=== PATIENT | female | born 1990 | race Caucasian/White ===

== ENCOUNTER → 2018-12-15 | Outpatient (CLI) | payer MEDICAID ==
[2015-09-23 22:00] VITALS: BP 110/63
[~2018-12-15] MED LIST: CYMBALTA60 M1 PO; IBUPROFEN800 MG PO; INDERAL 10MG10 MG PO; NO HOME MEDICATIONS; NORCO 325 MG-51 TAB PO; RT ALBUTEROL I6.8 GM IH
== END ==
LOC: RAD 12-10 08:30
DX: M54.9 Dorsalgia, unspecified (principal); M79.10 Myalgia, unspecified site

== ENCOUNTER → 2019-05-26 | Outpatient (CLI) | payer BC, MEDICAID ==
[2015-09-23 22:00] VITALS: BP 110/63
== END ==
LOC: RAD 13:22
DX: M25.511 Pain in right shoulder (principal)

== ENCOUNTER → 2019-06-17 | Outpatient (CLI) | payer BC, MEDICAID ==
[2015-09-23 22:00] VITALS: BP 110/63
[2019-06-19 14:46] LABS: ANA SCREEN with REFLEX Negative (Negative)
== END ==
LOC: LAB 16:45
PROVIDERS: Nurse Practitioner
DX: L40.9 Psoriasis, unspecified (principal); M25.50 Pain in unspecified joint

== ENCOUNTER 2019-07-22 22:38 | Emergency (ER) | payer BC, MEDICAID ==
[2019-07-22] MEDS ORDERED: PREGABALIN75 MG PO (22:45)
[2019-07-22 23:48] VITALS: BP 124/75
== END 2019-07-22 23:48 | disposition home or self-care (01) ==
LOC: ED 22:38
DX: S61.511A Laceration without foreign body of right wrist, initial encounter (principal); M79.7 Fibromyalgia; F17.290 Nicotine dependence, other tobacco product, uncomplicated; Z23 Encounter for immunization; W01.110A Fall on same level from slipping, tripping and stumbling with subsequent striking against sharp glass, initial encounter; Y92.009 Unspecified place in unspecified non-institutional (private) residence as the place of occurrence of the external cause
CPT/HCPCS: 90715

== ENCOUNTER 2019-08-23 14:59 | Emergency (ER) | payer BC, MEDICAID ==
[~2019-08-23] VITALS: Ht 170.2 cm; Wt 84.1 kg
[~2019-08-23 14:59] MED LIST changes: +PREGABALIN75 MG PO
[2019-08-23] MEDS ORDERED: ZOFRAN4 M2 PO (16:12)
[2019-08-23] MEDS ORDERED: OXAYDO7.5 MG PO (16:12)
[2019-08-23 16:41] LABS: HEMATOCRIT 38.7 % (37.0-47.0); HEMOGLOBIN 12.8 g/dL (12.5-16.0); MEAN CELL VOLUME 89 fl (78-100); MEAN CORPUSCULAR HEMOGLOBIN 29 pg (27-31); MEAN CORPUSCULAR HGB CONC 33 g/dL (33-37); MEAN PLATELET VOLUME 9.1 fl (7.4-10.4); PLATELET COUNT 223 K/mm3 (130-400); RED BLOOD COUNT 4.35 M/mm3 (4.10-5.30); RED CELL DISTRIBUTION WIDTH 12.7 % (11.5-14.5); WHITE BLOOD COUNT 5.3 K/mm3 (4.8-10.8)
[2019-08-23 16:46] LABS: ALBUMIN 4.1 g/dL (3.5-5.0); POTASSIUM 4.3 mmol/L (3.5-5.1)
[2019-08-23 16:47] LABS: CALCIUM 9.5 mg/dL (8.3-10.5)
[2019-08-23 16:48] LABS: TOTAL PROTEIN 7.1 g/dL (6.4-8.3)
[2019-08-23 16:50] LABS: TOTAL BILIRUBIN 0.7 mg/dL (0.2-1.2)
[2019-08-23 16:58] LABS: LYMPHOCYTE 35 % (20-51); MONOCYTE 9 % (3-10); NEUTROPHILS 54 % (42-75)
[2019-08-23 17:26] VITALS: BP 121/78
== END 2019-08-23 17:28 | disposition home or self-care (01) ==
LOC: ED 14:59
PROVIDERS: Family Medicine
DX: A08.4 Viral intestinal infection, unspecified (principal); M79.7 Fibromyalgia; G43.909 Migraine, unspecified, not intractable, without status migrainosus; F17.210 Nicotine dependence, cigarettes, uncomplicated; Z90.49 Acquired absence of other specified parts of digestive tract

== ENCOUNTER 2019-10-09 15:00 | Outpatient (RCR) | payer BC, MEDICAID ==
[~2019-10-09 15:00] MED LIST changes: +OXAYDO7.5 MG PO; +ZOFRAN4 M2 PO
== END 2019-10-09 15:30 | disposition still patient (30) ==
LOC: PT 15:00
DX: M75.41 Impingement syndrome of right shoulder (principal); G25.89 Other specified extrapyramidal and movement disorders

== ENCOUNTER 2019-10-09 15:30 | Outpatient (RCR) | payer BC, MEDICAID ==
[2015-09-23 22:00] VITALS: BP 110/63
== END 2019-10-11 | disposition still patient (30) ==
LOC: PT
DX: M25.511 Pain in right shoulder (principal)

== ENCOUNTER 2019-12-14 15:00 | Outpatient (RCR) | payer BC, MEDICAID | END 2020-01-24 | disposition still patient (30) | LOC: PT | DX: M25.511 Pain in right shoulder (principal); M25.50 Pain in unspecified joint ==

== ENCOUNTER 2020-02-25 16:00 | Outpatient (RCR) | payer BC, MEDICAID | END 2020-02-25 16:30 | disposition home or self-care (01) | LOC: PT 16:00 | DX: M54.2 Cervicalgia (principal); M79.7 Fibromyalgia ==

== ENCOUNTER → 2020-03-22 | Outpatient (CLI) | payer BC, MEDICAID | LOC: LAB 18:51 | DX: G43.909 Migraine, unspecified, not intractable, without status migrainosus (principal); R31.9 Hematuria, unspecified ==

== ENCOUNTER → 2020-10-10 | Outpatient (CLI) | payer MEDICAID ==
[~2020-10-10] MED LIST changes: +BIRTH CONTROL PO; +CIPRO500 M1 PO; +FLAGYL500 M1 PO; +GRALISE600 MG PO; +NORCO 325 MG-51 TA1 PO; +OXAYDO5 MG PO; -OXAYDO7.5 MG PO; +PROAIR HFA0.09 MG/AC IH; -RT ALBUTEROL I6.8 GM IH; +SAVELLA50 MG PO; +ZOFRAN ODT4 MG PO
== END ==
LOC: LAB 13:21
DX: U07.1 COVID-19 (principal)

== ENCOUNTER 2021-03-03 08:51 | Emergency (ER) | payer MEDICAID ==
[~2021-03-03 08:51] MED LIST changes: -BIRTH CONTROL PO; -CIPRO500 M1 PO; -FLAGYL500 M1 PO; -GRALISE600 MG PO; -NORCO 325 MG-51 TA1 PO; -SAVELLA50 MG PO; -ZOFRAN ODT4 MG PO
[2021-03-03] MEDS ORDERED: GRALISE600 MG PO (09:06)
[2021-03-03] MEDS ORDERED: BIRTH CONTROL PO (09:07)
[2021-03-03] MEDS ORDERED: SAVELLA50 MG PO (09:07)
[2021-03-03 10:01] LABS: HEMATOCRIT 42.7 % (37.0-47.0); MEAN CELL VOLUME 95 fl (78-100); MEAN CORPUSCULAR HEMOGLOBIN 31 pg (27-31); MEAN CORPUSCULAR HGB CONC 33 g/dL (33-37); MEAN PLATELET VOLUME 10.2 fl (7.4-10.4); PLATELET COUNT 164 K/mm3 (130-400); RED BLOOD COUNT 4.51 M/mm3 (4.10-5.30); WHITE BLOOD COUNT 10.3 K/mm3 (4.8-10.8)
[2021-03-03 10:05] LABS: ALBUMIN 4.1 g/dL (3.5-5.0)
[2021-03-03 10:06] LABS: POTASSIUM 3.9 mmol/L (3.5-5.1)
[2021-03-03 10:08] LABS: TOTAL PROTEIN 6.9 g/dL (6.4-8.3)
[2021-03-03 10:10] LABS: TOTAL BILIRUBIN 1.3 mg/dL (0.2-1.2)
[2021-03-03 10:43] LABS: LYMPHOCYTE 12 % (20-51); MONOCYTE 4 % (3-10); NEUTROPHILS 82 % (42-75)
[2021-03-03 11:05] LABS: PH-URINE 6.5 (5.0 - 8.0); URINE APPEARANCE HAZY; URINE BILIRUBIN NEGATIVE (NEGATIVE); URINE BLOOD TRACE (NEGATIVE); URINE COLOR DK YELLOW; URINE GLUCOSE NEGATIVE (NEGATIVE); URINE KETONE NEGATIVE (NEGATIVE); URINE LEUKOCYTE ESTERASE TRACE (NEGATIVE); URINE NITRATE NEGATIVE (NEGATIVE); URINE PROTEIN(semi-quant) NEGATIVE (NEGATIVE); URINE UROBILINOGEN NORMAL (NORMAL)
[2021-03-03 11:06] LABS: URINE MUCUS PRESENT (NOT PRESENT)
[2021-03-03] MEDS ORDERED: NORCO 325 MG-51 TA1 PO (12:47)
[2021-03-03] MEDS ORDERED: CIPRO500 M1 PO (12:47)
[2021-03-03] MEDS ORDERED: ZOFRAN ODT4 MG PO (12:47)
[2021-03-03] MEDS ORDERED: FLAGYL500 M1 PO (12:47)
[2021-03-03 13:17] VITALS: BP 137/87
== END 2021-03-03 13:19 | disposition home or self-care (01) ==
LOC: ED 08:51
PROVIDERS: Physician Assistant
DX: K52.9 Noninfective gastroenteritis and colitis, unspecified (principal); F17.210 Nicotine dependence, cigarettes, uncomplicated
CPT/HCPCS: J1885; J2405; J7030; Q9967

== ENCOUNTER → 2021-05-08 | Outpatient (CLI) | payer MEDICAID ==
[~2021-05-08] MED LIST changes: +BIRTH CONTROL PO; +CIPRO500 M1 PO; +FLAGYL500 M1 PO; +GRALISE600 MG PO; +NORCO 325 MG-51 TA1 PO; +SAVELLA50 MG PO; +ZOFRAN ODT4 MG PO
[2021-05-08 16:37] LABS: BASO # 0.01 (0.02-0.10); EOS # 0.03 (0.04-0.40); EOS % 0.4 % (1.0-5.0); HEMATOCRIT 44.1 % (37.0-47.0); HEMOGLOBIN 14.8 g/dL (12.5-16.0); LYMPH# 1.45 (1.50-4.00); MEAN CELL VOLUME 92 fl (78-100); MEAN CORPUSCULAR HEMOGLOBIN 31 pg (27-31); MEAN CORPUSCULAR HGB CONC 34 g/dL (33-37); MEAN PLATELET VOLUME 8.9 fl (7.4-10.4); MONO # 0.54 (0.20-0.80); NEU # 6.43 (1.40-6.50); PLATELET COUNT 350 K/mm3 (130-400); RED BLOOD COUNT 4.81 M/mm3 (4.10-5.30); RED CELL DISTRIBUTION WIDTH 12.5 % (11.5-14.5); WHITE BLOOD COUNT 8.5 K/mm3 (4.8-10.8)
[2021-05-08 16:41] LABS: ALBUMIN 4.4 g/dL (3.5-5.0); POTASSIUM 4.8 mmol/L (3.5-5.1); SODIUM 141 mmol/L (136-145)
[2021-05-08 16:42] LABS: CALCIUM 9.8 mg/dL (8.3-10.5)
[2021-05-08 16:43] LABS: GLUCOSE 100 mg/dL (65-105)
[2021-05-08 16:44] LABS: TOTAL PROTEIN 7.6 g/dL (6.4-8.3)
[2021-05-08 16:45] LABS: CARBON DIOXIDE 22 mmol/L (22-29); TOTAL BILIRUBIN 0.7 mg/dL (0.2-1.2)
[2021-05-08 16:49] LABS: AST-SGOT 16 U/L (5-34)
[2021-05-08 16:50] LABS: ALT/SGPT 17 U/L (0-55); MAGNESIUM 2.09 mg/dL (1.60-2.60)
[2021-05-08 16:51] LABS: LIPASE 46 U/L (8-78)
[2021-05-08 17:51] LABS: ERYTHROCYTE SEDIMENTATION RATE 0 mm/hr (0-20)
== END ==
LOC: LAB 16:04
PROVIDERS: Internal Medicine
DX: R19.7 Diarrhea, unspecified (principal)

== ENCOUNTER → 2022-03-26 | Outpatient (CLI) | payer MEDICAID | LOC: RAD 17:53 | DX: M47.812 Spondylosis without myelopathy or radiculopathy, cervical region (principal); M48.03 Spinal stenosis, cervicothoracic region; M50.21 Other cervical disc displacement, high cervical region; M40.50 Lordosis, unspecified, site unspecified ==

== ENCOUNTER 2022-11-12 17:03 | Emergency (ER) | payer OTHER ==
[~2022-11-12] VITALS: Ht 170.2 cm; Wt 86.4 kg
[2022-11-12 17:51] LABS: BASO # 0.01 K/mm3 (0.02-0.10); EOS # 0.02 K/mm3 (0.04-0.40); EOS % 0.2 % (1.0-5.0); HEMATOCRIT 39.6 % (37.0-47.0); HEMOGLOBIN 13.3 g/dL (12.5-16.0); LYMPH# 1.54 K/mm3 (1.50-4.00); MEAN CELL VOLUME 90 fl (78-100); MEAN CORPUSCULAR HEMOGLOBIN 30 pg (27-31); MEAN CORPUSCULAR HGB CONC 34 g/dL (33-37); MONO # 0.54 K/mm3 (0.20-0.80); NEU # 6.72 K/mm3 (1.40-6.50); PLATELET COUNT 290 K/mm3 (130-400); RED BLOOD COUNT 4.41 M/mm3 (4.10-5.30); WHITE BLOOD COUNT 8.8 K/mm3 (4.8-10.8)
[2022-11-12 18:00] LABS: ALBUMIN 4.3 g/dL (3.5-5.0)
[2022-11-12 18:01] LABS: POTASSIUM 4.3 mmol/L (3.5-5.1)
[2022-11-12 18:02] LABS: CALCIUM 9.2 mg/dL (8.3-10.5)
[2022-11-12 18:03] LABS: TOTAL PROTEIN 6.9 g/dL (6.4-8.3)
[2022-11-12 18:05] LABS: TOTAL BILIRUBIN 0.8 mg/dL (0.2-1.2)
[2022-11-12 21:33] VITALS: BP 119/78
== END 2022-11-12 21:34 ==
LOC: ED 17:03
PROVIDERS: Nurse Practitioner
DX: S09.90XA Unspecified injury of head, initial encounter (principal); M54.2 Cervicalgia; Z28.310 Unvaccinated for COVID-19; V89.2XXA Person injured in unspecified motor-vehicle accident, traffic, initial encounter